=== PATIENT | male | born 1975 | race Caucasian/White ===

== ENCOUNTER 2017-06-16 22:48 | Observation (INO) ==
[2017-06-16 23:32] LABS: Basophils # 0.1 K/mcL (0.0-0.2); Basophils % 1.1 %; Eosinophils # 0.2 K/mcL (0.0-0.6); Eosinophils % 1.7 %; Hematocrit 48.3 % (37.5-50.1); Hemoglobin 16.6 g/dL (12.9-16.9); Immature Granulocytes % 0.3 % (0-4); Lymphocytes # 1.8 K/mcL (0.6-4.6); Lymphocytes % 18.4 %; Mean Corpuscular HGB Conc 34.4 g/dL (31.6-35.5); Mean Corpuscular Hemoglobin 30.9 pg (28.0-33.3); Mean Corpuscular Volume 89.9 fL (83.0-100.0); Mean Platelet Volume 11.8 fL (9.4-12.4); Monocytes # 0.7 K/mcL (0.0-1.3); Monocytes % 6.9 %; Neutrophils # 6.8 K/mcL (1.6-8.9); Platelet Count 246 K/mcL (140-400); Red Blood Count 5.37 M/mcL (4.19-5.50); Red Cell Distribution Width 12.2 % (11.5-14.5); Segmented Neutrophils % 71.6 %
[2017-06-16 23:34] LABS: Bilirubin,Urine Negative (Negative); Blood,Urine Negative (Negative); Clarity,Urine Clear (Clear); Color,Urine Yellow (Yellow); Glucose,Urine (UA) Normal (Normal); Ketones,Urine Negative (Negative); Leukocyte Esterase,Urine Negative (Negative); Nitrite,Urine Negative (Negative); Protein,Urine Trace mg/dL (Neg-Trace); Specific Gravity,Urine > 1.030 (1.010-1.025); Urobilinogen,Urine Normal (Normal)
[2017-06-16 23:36] LABS: Bacteria,Urine None Seen per hpf (None-Few); Hyaline Casts,Urine None Seen per lpf (None-Few); Squamous Epithelial Cell,Urine Moderate per lpf (None-Few)
[2017-06-16 23:41] LABS: BUN/Creatinine Ratio 21 (6-26); Blood Urea Nitrogen 19 mg/dL (6-20); Calcium 10.4 mg/dL (8.6-10.3); Carbon Dioxide 25 mEq/L (23-29); Chloride 105 mEq/L (98-107); Glucose 96 mg/dL (70-105); Osmolality,Calculated 286 (280-300); Potassium 3.7 mEq/L (3.5-5.1); Sodium 137 mEq/L (136-145); eGFR For African Americans > 60 (> 60); eGFR For Non-African Americans > 60 (> 60)
--- NOTE | 2017-06-17 00:11 | Emergency Department Note ---
Disposition Clinical Impression: Suicidal ideation, Medical clearance for psychiatric admission Disposition: Admitted As Inpatient Condition: Undetermined Referrals: NONE,PCP [Primary Care Provider] - Forms: ED Satisfaction Letter Time of Disposition: 04:40 Psych HPI - General Chief Complaint: ED Psychiatric Symptoms Stated Complaint: SI Time Seen by Provider: 06/17/17 00:00 Source: patient Mode of arrival: ambulatory Limitations: no limitations Nursing Notes Reviewed: Yes Vital Signs Reviewed: Yes - History of Present Illness HPI Narrative: 42-year-old male arrives in the emergency department complaining of suicidal comments. The patient states he got into a fight with his mother and states that there is some issues in Court recently. The patient states that he was trying to get some of his property returned from his mother and there was an argument that ensued. He made a statement that he wanted to hurt himself. The patient states this was more of an attention grabbing comments. He adamantly denies any suicidal ideation or plan at this time. He states that he was done to make statements but he states that he is willing to be evaluated by psychiatric team. He denies any other complaints at this time is resting comfortably in the room. The patient did state that he took a few Klonopin tonight which she is prescribed for anxiety due to the anxiety associated with a fight with his mother. He denies any other complaints. - Related Data Allergies Allergy/AdvReac Type Severity Reaction Status Date / Time No Known Allergies Allergy Verified 06/16/17 22:56 All systems ED: reviewed and negative except as stated. Constitutional: Denies: fever, chills, weakness Eyes: Denies: eye pain ENT ED: Denies: congestion Cardiovascular: Denies: chest pain Respiratory: Denies: dyspnea Gastrointestinal: Denies: abdominal pain Genitourinary: Denies: urgency, dysuria Musculoskeletal: Denies: back pain, neck pain Integumentary: Denies: rash Neurological: Denies: headache, weakness, numbness, paresthesias, confusion, abnormal gait, vertigo Psychiatric: Reports: anxiety, depression, suicidal thoughts. Denies: homicidal thoughts, auditory hallucinations, visual hallucinations Past Medical History - Past Medical History Attestation: Yes The following information was validated with the patient. Source: patient Medical history: Reports: hypertension, seizures Surgical history: Reports: non-contributory Psychiatric history: Reports: anxiety, depression - Social History Smoking Status: Never smoker Alcohol use: Reports: occasionally Drug use: Reports: none Physical Exam - General Limitations: no limitations General appearance: alert, appears intoxicated (on clonipine which the patient admits to taking this evening) - Head Head exam: atraumatic, normocephalic, normal inspection - Eye Eye exam: Present: normal appearance, PERRL, EOMI - ENT ENT exam: normal exam, normal oropharynx, mucous membranes moist - Neck Neck exam: Present: normal inspection, full ROM, trachea midline - Chest Chest inspection: Present: normal inspection, symmetric chest wall rise - Respiratory Respiratory exam: Present: normal lung sounds bilaterally - Cardiovascular Cardiovascular exam: Present: normal rhythm, tachycardia, normal heart sounds - Abdominal Exam Abdominal exam: Present: soft, Non-Tender. Absent: tenderness, distention, guarding, rebound, rigidity - Extremities Exam Extremities exam: Present: normal inspection, full ROM. Absent: tenderness, pedal edema - Neurological Exam Neurological exam: Present: alert, oriented X3, CN II-XII intact - Skin Skin exam: Present: warm, dry, intact, normal color Course Vital Signs Temperature 98.8 F 06/16/17 22:52 Pulse Rate 107 06/16/17 22:52 Respiratory Rate 16 06/16/17 22:52 Blood Pressure 155/88 06/16/17 22:52 O2 Sat by Pulse Oximetry 96 06/16/17 22:52 Temperature 98.8 F 06/16/17 22:52 Pulse Rate 78 06/17/17 00:50 Respiratory Rate 16 06/17/17 00:50 Blood Pressure 115/72 06/17/17 00:50 O2 Sat by Pulse Oximetry 93 06/17/17 00:50 Oxygen Delivery Oxygen Delivery Room Air Psych - MDM Narrative Medical decision making narrative: The patient was evaluated emergency department and medically cleared from the emergency department standpoint. The patient admitted to taking 10-12 Klonopin to the psychiatric nurse. At that time he was discussed with the psychiatrist cardiology consultants who felt that the patient could not be medically cleared at this time and recommended admission to hospital for observation. The patient is alert and oriented at this time and no longer appears intoxicated. We will admit the patient to the hospital per request for the psychiatrist. Accepted by Dr. Simeon. - Lab Data Result diagrams: 06/16/17 23:11 06/16/17 23:11 Lab Results 06/16/17 06/16/17 06/16/17 Range/Units 23:11 23:11 23:15 WBC 9.5 (4.3-11.1) K/mcL RBC 5.37 (4.19-5.50) M/mcL Hgb 16.6 (12.9-16.9) g/dL Hct 48.3 (37.5-50.1) % MCV 89.9 (83.0-100.0) fL MCH 30.9 (28.0-33.3) pg MCHC 34.4 (31.6-35.5) g/dL RDW 12.2 (11.5-14.5) % Plt Count 246 (140-400) K/mcL MPV 11.8 (9.4-12.4) fL Immature Gran % 0.3 (0-4) % Seg Neutrophils % 71.6 % Lymphocytes % 18.4 % Monocytes % 6.9 % Eosinophils % 1.7 % Basophils % 1.1 % Neutrophils # 6.8 (1.6-8.9) K/mcL Lymphocytes # 1.8 (0.6-4.6) K/mcL Monocytes # 0.7 (0.0-1.3) K/mcL Eosinophils # 0.2 (0.0-0.6) K/mcL Basophils # 0.1 (0.0-0.2) K/mcL Sodium 137 (136-145) mEq/L Potassium 3.7 (3.5-5.1) mEq/L Chloride 105 (98-107) mEq/L Carbon Dioxide 25 (23-29) mEq/L BUN 19 (6-20) mg/dL Creatinine 0.89 (0.70-1.30) mg/dL Est GFR ( Amer) > 60 (> 60) Est GFR (Non-Af Amer) > 60 (> 60) BUN/Creatinine Ratio 21 (6-26) Glucose 96 (70-105) mg/dL Calculated Osmolality 286 (280-300) Calcium 10.4 H (8.6-10.3) mg/dL Urine Color Yellow (Yellow) Urine Clarity Clear (Clear) Urine pH 6.0 (5.0-8.0) pH Units Ur Specific [place] > 1.030 H (1.010-1.025) Urine Protein Trace (Neg-Trace) mg/dL Urine Glucose (UA) Normal (Normal) mg/dL Urine Ketones Negative (Negative) mg/dL Urine Blood Negative (Negative) Urine Nitrite Negative (Negative) Urine Bilirubin Negative (Negative) Urine Urobilinogen Normal (Normal) mg/dL Ur Leukocyte Esterase Negative (Negative) Urine Microscopic RBC 5-15 H (0-3) per hpf Urine Microscopic WBC 3-5 H (0-3) per hpf Ur Squamous Epith Cells Moderate H (None-Few) per lpf Urine Bacteria None Seen (None-Few) per hpf Hyaline Casts None Seen (None-Few) per lpf Ur Culture Indicated? NO (NO) Salicylates < 2.5 L (15.0-30.0) mg/dL Urine Opiates Screen (Drupes=221) ng/mL Acetaminophen < 10 L (10-20) mcg/mL Ur Barbiturates Screen (Astiwf=596) ng/mL Ur Phencyclidine Scrn (Cutoff=25) ng/mL Ur Amphetamines Screen (Yrzqxr=7299) ng/mL U Benzodiazepines Scrn (Btkcmq=882) ng/mL Urine Cocaine Screen (Cutoff= 300) ng/mL U Marijuana (THC) Screen (Cutoff = 50) ng/mL Ethyl Alcohol < 10 (Less than 10) mg/dL 06/16/17 Range/Units 23:15 WBC (4.3-11.1) K/mcL RBC (4.19-5.50) M/mcL Hgb (12.9-16.9) g/dL Hct (37.5-50.1) % MCV (83.0-100.0) fL MCH (28.0-33.3) pg MCHC (31.6-35.5) g/dL RDW (11.5-14.5) % Plt Count (140-400) K/mcL MPV (9.4-12.4) fL Immature Gran % (0-4) % Seg Neutrophils % % Lymphocytes % % Monocytes % % Eosinophils % % Basophils % % Neutrophils # (1.6-8.9) K/mcL Lymphocytes # (0.6-4.6) K/mcL Monocytes # (0.0-1.3) K/mcL Eosinophils # (0.0-0.6) K/mcL Basophils # (0.0-0.2) K/mcL Sodium (136-145) mEq/L Potassium (3.5-5.1) mEq/L Chloride (98-107) mEq/L Carbon Dioxide (23-29) mEq/L BUN (6-20) mg/dL Creatinine (0.70-1.30) mg/dL Est GFR ( Amer) (> 60) Est GFR (Non-Af Amer) (> 60) BUN/Creatinine Ratio (6-26) Glucose (70-105) mg/dL Calculated Osmolality (280-300) Calcium (8.6-10.3) mg/dL Urine Color (Yellow) Urine Clarity (Clear) Urine pH (5.0-8.0) pH Units Ur Specific [place] (1.010-1.025) Urine Protein (Neg-Trace) mg/dL Urine Glucose (UA) (Normal) mg/dL Urine Ketones (Negative) mg/dL Urine Blood (Negative) Urine Nitrite (Negative) Urine Bilirubin (Negative) Urine Urobilinogen (Normal) mg/dL Ur Leukocyte Esterase (Negative) Urine Microscopic RBC (0-3) per hpf Urine Microscopic WBC (0-3) per hpf Ur Squamous Epith Cells (None-Few) per lpf Urine Bacteria (None-Few) per hpf Hyaline Casts (None-Few) per lpf Ur Culture Indicated? (NO) Salicylates (15.0-30.0) mg/dL Urine Opiates Screen Negative (Vouiuo=274) ng/mL Acetaminophen (10-20) mcg/mL Ur Barbiturates Screen Negative (Csfnbr=276) ng/mL Ur Phencyclidine Scrn Negative (Cutoff=25) ng/mL Ur Amphetamines Screen Negative (Kblent=6860) ng/mL U Benzodiazepines Scrn Negative (Afbtcj=045) ng/mL Urine Cocaine Screen Negative (Cutoff= 300) ng/mL U Marijuana (THC) Screen Negative (Cutoff = 50) ng/mL Ethyl Alcohol (Less than 10) mg/dL - EKG Data EKG attestation: Yes I reviewed and interpreted this EKG. EKG results narrative: Heart at 73 BPM. Normal Sinus Rhythm. No ST elevation or depression. Psychiatric Medical Clearance - Medical Clearance Checklist Medical History: Suicidal ideation (Acute) Medical clearance for psychiatric admission (Acute) No Social History Section defined Current Vitals: Last Vital Signs Temp 98.8 F 06/16/17 22:52 Pulse 78 03/29/18 00:50 Resp 16 06/17/17 00:50 BP 115/72 06/17/17 00:50 Pulse Ox 93 06/17/17 00:50 Psychiatric Lab Panel: Drug Levels and Toxicity 06/16/17 06/16/17 23:11 23:15 Urine Opiates Screen Negative Acetaminophen < 10 L Ur Barbiturates Screen Negative Ur Phencyclidine Scrn Negative Ur Amphetamines Screen Negative U Benzodiazepines Scrn Negative Urine Cocaine Screen Negative U Marijuana (THC) Screen Negative Ethyl Alcohol < 10 Abnormal Labs: Abnormal lab results Calcium 10.4 mg/dL (8.6-10.3) H 06/16/17 23:11 Ur Specific [place] > 1.030 (1.010-1.025) H 06/16/17 23:15 Urine Microscopic RBC 5-15 per hpf (0-3) H 06/16/17 23:15 Urine Microscopic WBC 3-5 per hpf (0-3) H 06/16/17 23:15 Ur Squamous Epith Cells Moderate per lpf (None-Few) H 06/16/17 23:15 Salicylates < 2.5 mg/dL (15.0-30.0) L 06/16/17 23:11 Acetaminophen < 10 mcg/mL (10-20) L 06/16/17 23:11 Statement of Medical Clearance: I have evaluated the patient, reviewed diagnostic information, and certify that the patient's medical condition is sufficiently stable that transfer to the psychiatric unit does not pose a significant risk of deterioration.
[2017-06-17 01:33] LABS: Amphetamine Screen,Urine Negative ng/mL (Cutoff=1000); Barbiturate Screen,Urine Negative ng/mL (Cutoff=200); Benzodiazepines Screen,Urine Negative ng/mL (Cutoff=200); Cannabinoid Screen,Urine Negative ng/mL (Cutoff = 50); Cocaine Screen,Urine Negative ng/mL (Cutoff= 300); Opiate Screen,Urine Negative ng/mL (Cutoff=300); Phencyclidine Screen,Urine Negative ng/mL (Cutoff=25)
[2017-06-17 02:44] LABS: Acetaminophen < 10 mcg/mL (10-20); Ethanol < 10 mg/dL (Less than 10); Salicylate < 2.5 mg/dL (15.0-30.0)
--- NOTE | 2017-06-17 03:11 | Emergency Department Note ---
Disposition Clinical Impression: Suicidal ideation, Medical clearance for psychiatric admission Disposition: Admitted As Inpatient Condition: Undetermined General Adult HPI - General Chief complaint: ED Psychiatric Symptoms Stated complaint: SI Time Seen by Provider: 06/17/17 00:00 Source: patient Mode of arrival: ambulatory Limitations: no limitations - History of Present Illness Pain Scale: 0 - Related Data Allergies Allergy/AdvReac Type Severity Reaction Status Date / Time No Known Allergies Allergy Verified 06/16/17 22:56 Constitutional: Denies: fever, chills, weakness Eyes: Denies: eye pain ENT ED: Denies: congestion Cardiovascular: Denies: chest pain Respiratory: Denies: dyspnea Gastrointestinal: Denies: abdominal pain Genitourinary: Denies: urgency, dysuria Musculoskeletal: Denies: back pain, neck pain Integumentary: Denies: rash Neurological: Denies: headache, weakness, numbness, paresthesias, confusion, abnormal gait, vertigo Psychiatric: Reports: anxiety, depression, suicidal thoughts. Denies: homicidal thoughts, auditory hallucinations, visual hallucinations Past Medical History - Past Medical History Medical history: Reports: hypertension, seizures Surgical history: Reports: non-contributory Psychiatric history: Reports: anxiety, depression - Social History Smoking Status: Never smoker Alcohol use: Reports: occasionally Drug use: Reports: none Physical Exam - General Limitations: no limitations General appearance: alert, appears intoxicated (on clonipine which the patient admits to taking this evening) Course Vital Signs Temperature 98.8 F 06/16/17 22:52 Pulse Rate 107 06/16/17 22:52 Respiratory Rate 16 06/16/17 22:52 Blood Pressure 155/88 06/16/17 22:52 O2 Sat by Pulse Oximetry 96 06/16/17 22:52 Temperature 98.8 F 06/16/17 22:52 Pulse Rate 82 06/17/17 04:59 Respiratory Rate 16 06/17/17 04:59 Blood Pressure 126/78 06/17/17 04:59 O2 Sat by Pulse Oximetry 97 06/17/17 04:59 Oxygen Delivery Oxygen Delivery Room Air Medical Decision Making - Lab Data Result diagrams: 06/16/17 23:11 06/16/17 23:11 Lab Results 06/16/17 06/16/17 06/16/17 Range/Units 23:11 23:11 23:15 WBC 9.5 (4.3-11.1) K/mcL RBC 5.37 (4.19-5.50) M/mcL Hgb 16.6 (12.9-16.9) g/dL Hct 48.3 (37.5-50.1) % MCV 89.9 (83.0-100.0) fL MCH 30.9 (28.0-33.3) pg MCHC 34.4 (31.6-35.5) g/dL RDW 12.2 (11.5-14.5) % Plt Count 246 (140-400) K/mcL MPV 11.8 (9.4-12.4) fL Immature Gran % 0.3 (0-4) % Seg Neutrophils % 71.6 % Lymphocytes % 18.4 % Monocytes % 6.9 % Eosinophils % 1.7 % Basophils % 1.1 % Neutrophils # 6.8 (1.6-8.9) K/mcL Lymphocytes # 1.8 (0.6-4.6) K/mcL Monocytes # 0.7 (0.0-1.3) K/mcL Eosinophils # 0.2 (0.0-0.6) K/mcL Basophils # 0.1 (0.0-0.2) K/mcL Sodium 137 (136-145) mEq/L Potassium 3.7 (3.5-5.1) mEq/L Chloride 105 (98-107) mEq/L Carbon Dioxide 25 (23-29) mEq/L BUN 19 (6-20) mg/dL Creatinine 0.89 (0.70-1.30) mg/dL Est GFR ( Amer) > 60 (> 60) Est GFR (Non-Af Amer) > 60 (> 60) BUN/Creatinine Ratio 21 (6-26) Glucose 96 (70-105) mg/dL Calculated Osmolality 286 (280-300) Calcium 10.4 H (8.6-10.3) mg/dL Urine Color Yellow (Yellow) Urine Clarity Clear (Clear) Urine pH 6.0 (5.0-8.0) pH Units Ur Specific [place] > 1.030 H (1.010-1.025) Urine Protein Trace (Neg-Trace) mg/dL Urine Glucose (UA) Normal (Normal) mg/dL Urine Ketones Negative (Negative) mg/dL Urine Blood Negative (Negative) Urine Nitrite Negative (Negative) Urine Bilirubin Negative (Negative) Urine Urobilinogen Normal (Normal) mg/dL Ur Leukocyte Esterase Negative (Negative) Urine Microscopic RBC 5-15 H (0-3) per hpf Urine Microscopic WBC 3-5 H (0-3) per hpf Ur Squamous Epith Cells Moderate H (None-Few) per lpf Urine Bacteria None Seen (None-Few) per hpf Hyaline Casts None Seen (None-Few) per lpf Ur Culture Indicated? NO (NO) Salicylates < 2.5 L (15.0-30.0) mg/dL Urine Opiates Screen (Lwcjle=552) ng/mL Acetaminophen < 10 L (10-20) mcg/mL Ur Barbiturates Screen (Ywhaan=254) ng/mL Ur Phencyclidine Scrn (Cutoff=25) ng/mL Ur Amphetamines Screen (Yqavqk=2181) ng/mL U Benzodiazepines Scrn (Ipizmu=572) ng/mL Urine Cocaine Screen (Cutoff= 300) ng/mL U Marijuana (THC) Screen (Cutoff = 50) ng/mL Ethyl Alcohol < 10 (Less than 10) mg/dL 06/16/17 Range/Units 23:15 WBC (4.3-11.1) K/mcL RBC (4.19-5.50) M/mcL Hgb (12.9-16.9) g/dL Hct (37.5-50.1) % MCV (83.0-100.0) fL MCH (28.0-33.3) pg MCHC (31.6-35.5) g/dL RDW (11.5-14.5) % Plt Count (140-400) K/mcL MPV (9.4-12.4) fL Immature Gran % (0-4) % Seg Neutrophils % % Lymphocytes % % Monocytes % % Eosinophils % % Basophils % % Neutrophils # (1.6-8.9) K/mcL Lymphocytes # (0.6-4.6) K/mcL Monocytes # (0.0-1.3) K/mcL Eosinophils # (0.0-0.6) K/mcL Basophils # (0.0-0.2) K/mcL Sodium (136-145) mEq/L Potassium (3.5-5.1) mEq/L Chloride (98-107) mEq/L Carbon Dioxide (23-29) mEq/L BUN (6-20) mg/dL Creatinine (0.70-1.30) mg/dL Est GFR ( Amer) (> 60) Est GFR (Non-Af Amer) (> 60) BUN/Creatinine Ratio (6-26) Glucose (70-105) mg/dL Calculated Osmolality (280-300) Calcium (8.6-10.3) mg/dL Urine Color (Yellow) Urine Clarity (Clear) Urine pH (5.0-8.0) pH Units Ur Specific [place] (1.010-1.025) Urine Protein (Neg-Trace) mg/dL Urine Glucose (UA) (Normal) mg/dL Urine Ketones (Negative) mg/dL Urine Blood (Negative) Urine Nitrite (Negative) Urine Bilirubin (Negative) Urine Urobilinogen (Normal) mg/dL Ur Leukocyte Esterase (Negative) Urine Microscopic RBC (0-3) per hpf Urine Microscopic WBC (0-3) per hpf Ur Squamous Epith Cells (None-Few) per lpf Urine Bacteria (None-Few) per hpf Hyaline Casts (None-Few) per lpf Ur Culture Indicated? (NO) Salicylates (15.0-30.0) mg/dL Urine Opiates Screen Negative (Jxlnev=116) ng/mL Acetaminophen (10-20) mcg/mL Ur Barbiturates Screen Negative (Umnmma=968) ng/mL Ur Phencyclidine Scrn Negative (Cutoff=25) ng/mL Ur Amphetamines Screen Negative (Owicao=9949) ng/mL U Benzodiazepines Scrn Negative (Kbvtns=339) ng/mL Urine Cocaine Screen Negative (Cutoff= 300) ng/mL U Marijuana (THC) Screen Negative (Cutoff = 50) ng/mL Ethyl Alcohol (Less than 10) mg/dL Attestation Statement - Attestation Attestation: I, Alireza Rojas MD, personally evaluated this patient and discussed their management with the resident physician. I reviewed the resident's note and agree with the documented findings, medical decision making, and plan of care. 42-year-old male presents to the emergency department for psychiatric evaluation after he made some suicidal statements during an argument. He apparently also took several Klonopin. He denies suicidal ideation now. No physical complaints. On examination patient is a well-developed well-nourished well-appearing male in no acute distress. He is alert and oriented 3. There is no cyanosis or diaphoresis. Breath sounds are clear and equal bilaterally. Heart regular rate and rhythm. Abdomen soft and nontender with normal bowel sounds. No gross focal neurological deficits. Labs reviewed. Urine tox screen negative. Aspirin and Tylenol and alcohol levels negative. Patient medically cleared and [address] psychiatry service was consulted to evaluate patient in the emergency department. The on-call psychiatrist declined to accept patient on their psychiatric unit and requested patient be admitted medically for observation due to the Klonopin ingestion. The hospitalist, Dr. Simeon, was consulted and accepted admission of the patient.
[2017-06-17 05:00] VITALS: BP 126/78
[2017-06-17] MEDS ORDERED: Naloxone 0.4 MG/ML INJ IVP PRN (05:15)
--- NOTE | 2017-06-17 05:23 | Internal Med History&Physical ---
Date of Encounter: 06/17/17 Time of Encounter: 04:00 Assessment and Plan (1) Medication overdose Current visit: Yes Status: Acute Patient took 10-12 pills of Klonopin. Currently awake alert. Will place patient on continuous cardiac monitoring. Closely monitor patient vitals. Follow-up liver and kidney function. Qualifiers: Encounter type: initial encounter Injury intent: undetermined intent Qualified Code(s): T50.904A - Poisoning by unspecified drugs, medicaments and biological substances, undetermined, initial encounter (2) DVT prophylaxis Current visit: Yes Status: Acute Patient is young and ambulating well. No anticoagulation needed (3) Suicidal ideation Current visit: Yes Status: Acute Patient has expressed suicidal ideas. Place patient on one-to-one sitter. Patient was pink slipped already by ER. Psych consult in a.m. Internal Medicine - H&P: HPI Chief complaint: Drug overdose Admitted From: Home Plans for Post Hospital Care: Transfer Psych Facility History of present illness: Mr. Portillo is a 42 year old male with history of anxiety present to ER for suicidal idea and took overdose of Klonopin. Patient refused to talk to me when I saw him. History was obtained from ER documentation. Patient expressed suicidal ideas during family argument. He probably took 10-12 pills of Klonopin in the evening. When I saw patient in the emergency room, he is awake alert, seems not confusion at all. Patient was pink slipped by ER doctor. Admitted for medication overdose and suicidal idea. Past Med Surg Social Fam HX - Past Medical History Medical history: hypertension, seizures Psychiatric history: anxiety, depression - Past Surgical History Surgical History: non-contributory - Social History Smoking Status: Never smoker Alcohol use: occasionally Drug use: none - Family History Mother History Unknown: Yes Internal Medicine - H&P: Meds 3 Allergy/AdvReac Type Severity Reaction Status Date / Time No Known Allergies Allergy Verified 06/16/17 22:56 All Systems PM: A 10-system review of systems was performed and is negative for pertinent findings except as documented above in the HPI. - Constitutional Vitals: Temp Pulse Resp BP Pulse Ox 98.8 F 82 16 126/78 97 06/16/17 22:52 06/17/17 04:59 06/17/17 04:59 06/17/17 04:59 06/17/17 04:59 General appearance: Present: A&O X 3, no acute distress, answers questions appropriately - Head Head exam: Present: atraumatic, normocephalic - Eye Eye exam: Present: PERRL, conjuntiva pink, sclera anicteric Pupils: Present: PERRL - Neck Neck exam general surgery: Present: supple, trachea midline. Absent: lymphadenopathy - Respiratory Respiratory exam: Present: CTAB. Absent: accessory muscle use, rales, rhonchi, wheezes - Cardiovascular Cardiovascular exam: Present: RRR, +S1, +S2. Absent: diastolic murmur, gallop, rubs, systolic murmur - GI/Abdominal GI/Abdominal exam: Present: normal bowel sounds, soft, no peritoneal signs. Absent: distended, tenderness - Extremities Exam Extremities exam: Present: warm, radial pulses palpable and symmetrical. Absent : calf tenderness, cyanotic, pedal edema - Neurological Exam Neurological exam: Present: CN II-XII intact, oriented X3, no focal deficits. Absent: pronater drift, facial droop, speech deficit - Skin Skin exam: Present: dry, intact Internal Med - H&P Results - Labs CBC & Chem 7: 06/16/17 23:11 06/16/17 23:11 - EKG Data -: EKG Interpreted by Myself EKG shows normal: sinus rhythm Rate: normal
--- NOTE | 2017-06-17 11:35 | Event Note ---
Date of Encounter: 06/17/17 Time of Encounter: 11:34 Patient was seen and examined. Has a history of depression and anxiety. Says he is prescribed Prozac and Klonopin by his PCP. Says he took multiple Klonopin yesterday to "cut the edge off". He does not remember being suicidal and he has no suicidal thoughts currently. Patient is hemodynamically stable. Labs are normal. He is to be evaluated by psychiatry to see whether he can be transferred to the psych unit or discharged.
--- NOTE | 2017-06-17 11:42 | Discharge Summary ---
Orders not resulted at time of discharge: Pending orders 06/18/17 04:00 Complete Blood Count [HEME] AM 0400 Comprehensive Metabolic Panel AM 0400 Date of Encounter: 06/17/17 Time of Encounter: 11:40 - Discharge Diagnosis (1) Medication overdose Priority: Primary Status: Acute Qualifiers: Encounter type: initial encounter Injury intent: undetermined intent Qualified Code(s): T50.904A - Poisoning by unspecified drugs, medicaments and biological substances, undetermined, initial encounter (2) Suicidal ideation Priority: Primary Status: Resolved Hospital course: Mr. Portillo is a 42 year old male with history of anxiety presented to ER for suicidal idea and overdose on Klonopin. Patient was lethargic however his workup was unremarkable. He was hemodynamically stable. Was admitted for psych evaluation. They came and evaluated the patient and cleared to be discharged home. The patient takes Klonopin and Prozac at home. It was found that he took 12 tablets of the Klonopin 0.5 mg as he stated that he needed to get the edge off. Psychiatry did recommend increasing his Prozac 20 mg and to stop his Klonopin adding gabapentin 100 mg twice a day. The patient refused those scripts. He was discharged on 06/17. He will follow-up with his psychiatrist and his primary care physician. - Time Spent with Patient Total time spent providing and/or coordinating discharge services: Greater than 30 minutes - Discharge Medications Home Medications: FLUoxetine HCl [Fluoxetine HCl] 10 mg PO QAM 06/17/17 [History] clonazePAM [Klonopin] 0.5 mg PO BID PRN 06/17/17 [History] Allergies/Adverse Reactions: 3 Allergy/AdvReac Type Severity Reaction Status Date / Time No Known Allergies Allergy Verified 06/17/17 11:09 Date of admission: 06/17/17 04:46 Primary care physician: PCP NONE - Constitutional Vitals: Temp Pulse Resp BP Pulse Ox 98.8 F 82 16 126/78 97 06/16/17 22:52 06/17/17 04:59 06/17/17 04:59 06/17/17 04:59 06/17/17 04:59 General appearance: Present: A&O X 3, no acute distress, answers questions appropriately Exam: GEN: NAD CVS: RRR. S1, S2, No m/r/g RESP: CTAB ABD: Soft, NT, ND, +BS EXT: No edema. 2+ DP. No rashes NEURO: Nonfocal - Patient Status Disposition: Home, Self-Care Condition: Fair Overall status at discharge: patient is progressing back to baseline - Discharge Instructions Follow Up With: NONE,PCP [Primary Care Provider] - - Diet and Activity Activity: increase activity as tolerated Diet: regular diet
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
--- NOTE | 2017-06-17 16:53 | Electrocardiograph Report ---
[place] [id number] Test Date: 2017-06-17 Pat Name: Gilberto Portillo Department: 103 Room: 2A25 Gender: M [employer]: HAMMAD : 1975 Requested By: Lukas Adames Order Number: [id number] Reading MD: Reed Ferreira Measurements Intervals [place] Rate: 73 P: 38 WV: 161 QRS: 18 QRSD: 94 T: 18 QT: 395 QTc: 421 Interpretive Statements SINUS RHYTHM VOLTAGE CRITERIA FOR LVH Electronically Signed On 06-17-2017 16:51:25 EDT by Reed Ferreira
== END 2017-06-17 14:19 | disposition home or self-care (01) ==
LOC: EMEROO 22:48 → 2ANU 22:48
PROVIDERS: ADMIT Internal Medicine; ATTEND Internal Medicine